=== PATIENT | female | born 1985 | race Caucasian/White ===

== ENCOUNTER 2019-07-23 08:34 | Emergency (ER) | payer OTHER ==
[~2019-07-23] VITALS: Ht 160 cm; Wt 109.3 kg
[~2019-07-23 08:34] MED LIST: IBUP-1542 PO
[2019-07-23 08:36] VITALS: Ht 160 cm; Wt 109.3 kg
[2019-07-23 11:10] VITALS: BP 152/91; PULSE 74; RESP 18
== END 2019-07-23 11:10 | disposition home or self-care (01) ==
LOC: FTE 08:34
DX: R07.89 Other chest pain (principal)
CPT/HCPCS: 71045; 80048; 81025; 84484; 85025; 93005; Z7502